=== PATIENT | male | born 1930 | race Caucasian/White ===

== ENCOUNTER 2019-09-04 08:14 | Observation (INO) | payer MEDICARE ==
[2019-08-29 16:33] LABS: BASOPHILS % (AUTO) 0.6 % (0-1); EOSINOPHILS # (AUTO) 0.5 X10'3 (0-0.9); EOSINOPHILS % (AUTO) 10.7 % (0-6); LYMPHOCYTES # (AUTO) 1.1 X10'3 (1.1-4.8); LYMPHOCYTES % (AUTO) 21.7 % (21-51); MEAN CORPUSCULAR HEMOGLOBIN 28.4 PG (27.0-31.0); MEAN CORPUSCULAR HGB CONC 32.4 g/dL (33.0-36.5); MEAN CORPUSCULAR VOLUME 87.8 FL (78-98); MEAN PLATELET VOLUME 8.5 FL (7.4-10.4); MONOCYTES # (AUTO) 0.4 X10'3 (0-0.9); MONOCYTES % (AUTO) 7.4 % (2-12); NEUTROPHILS # (AUTO) 2.9 X10'3 (1.8-7.7); NEUTROPHILS % (AUTO) 59.6 % (42-75); PRE OP HEMATOCRIT 38.9 % (42.0-52.0); PRE OP HEMOGLOBIN 12.6 g/dL (14.0-17.9); PRE OP PLATELET COUNT 169 X10'3 (140-440); RED BLOOD COUNT 4.43 X10'6 (4.70-6.10); RED CELL DISTRIBUTION WIDTH 14.4 % (11.5-14.5)
[2019-08-29 16:43] LABS: PRE OP PROTIME 34.1 SECONDS (9.0-12.0)
[2019-08-29 16:45] LABS: PRE OP INR 3.6 INR
[2019-08-29 16:58] LABS: ALBUMIN 3.4 G/DL (3.4-5.0); ALKALINE PHOSPHATASE 74 IU/L (46-116); BLOOD UREA NITROGEN 31 MG/DL (7-18); CALCIUM 8.6 MG/DL (8.5-10.1); CHLORIDE 108 MMOL/L (99-107); CREATININE 1.82 MG/DL (0.60-1.10); PRE OP ALT 30 U/L (30-65); PRE OP ANION GAP 8 (8-16); PRE OP AST 18 U/L (10-37); PRE OP BILIRUB, TOTAL 0.5 MG/DL (0.0-1.0); PRE OP GLUCOSE 92 MG/DL (70-104); PRE OP POTASSIUM 4.4 MMOL/L (3.4-5.1); PRE OP SODIUM 142 MMOL/L (135-145); TOTAL CARBON DIOXIDE 26.4 MMOL/L (24-32); TOTAL PROTEIN 6.7 G/DL (6.4-8.2); eGFR 35 ML/MIN
[~2019-09-04] VITALS: Ht 177.8 cm; Wt 73.8 kg
[2019-09-04] VITALS (20 sets, daily range): BP systolic 109–167; BP diastolic 51–90
[~2019-09-04 08:14] MED LIST: ACET-812 PO; ALIR75PE SQ; ALOE1CAP PO; ASPI-1265 PO; COU4T PO; CYAN100087 PO; FINA5TAB42 PO; GLUC-183 PO; HYDROcodone/acetaminophen 10/325mg tab PO PRN; HYDROmorphone 1 mg/ml syringe IV PRN; HYDROmorphone inj. 0.5 MG/0.5 ML DISP.SYRIN IV PRN; LEVO75TA7 PO; OMEG1CAP87 PO; acetaminophen 325mg tablet PO ONE; acetaminophen 325mg tablet PO PRN; bisacodyl 10mg suppository rectal RC PRN; ceFAZolin 2gm in dextrose, iso 50 ML IV ONE; celeCOXIB 100mg capsule PO ONE; diphenhydrAMINE 25mg capsule PO PRN; famotidine 20mg tablet PO ONE; gabapentin 300mg capsule PO ONE; magnesium hydroxide 30ml (MOM) UD suspension PO PRN; metoclopramide 5 mg/ml inj IV ONE; ondansetron/PF 4mg/2ml inj IV PRN; oxyCODONE SR 10mg (sust. release) tab -2 tabs (20mg) PO ONE; ringers solution, lacted 1,000 ML IV SCH; tranexamic acid 1gm/0.7% sal. 100 ML IV ONE; vancomycin 1,500 MG in NS 300ml IV soln IV ONE
[2019-09-04] MEDS ORDERED: celeCOXIB 100mg capsule PO ONE (09:20)
[2019-09-04] MEDS ORDERED: vancomycin 1,000mg inj ONE (09:55)
[2019-09-04] MEDS ORDERED: ROPIVAcaine 0.5% (5mg/ml) 30ml vial ONE (09:55)
[2019-09-04] MEDS ORDERED: epiNEPHrine 1 mg/ml inj ONE (09:55)
[2019-09-04] MEDS ORDERED: cloNIDine hcl/PF 100mcg/ml inj ONE (09:55)
[2019-09-04 10:31] LABS: PARTIAL THROMBOPLASTIN TIME 26 SECONDS (22-32); PRE OP INR 1.2 INR; PRE OP PROTIME 11.9 SECONDS (9.0-12.0)
[2019-09-04] MEDS ORDERED: fentaNYL/PF 50MCG/1 ML 2ML syringe ONE (10:36)
[2019-09-04] MEDS ORDERED: midazolam 2 mg/2 ml injection ONE (10:37)
[2019-09-04] MEDS ORDERED: propofol inj 20 ML IV ONE (11:22)
[2019-09-04] MEDS ORDERED: diphenhydrAMINE 50 mg/ml inj ONE (11:22)
[2019-09-04] MEDS ORDERED: LIDOcaine 2% (20mg/ml) 5ml vial ONE (11:22)
[2019-09-04] MEDS ORDERED: ePHEDrine 50MG/ML INJ. ONE (11:22)
--- NOTE | 2019-09-04 12:00 | NUR ---
RECEIVED FROM [facility] VIA BED WITH OHTF ACCOMPANIED BY ANESTHESIOLOGIST DR BENITEZ, REPORT GIVEN. PT DROWSY BUT AROUSES EASILY AND DENIES PAIN AT THIS TIME. L HIP LAURO DRESSING CDI, HIP WRAP, POWDER PACK AND KNEE IMMOBILIZER ON. SPINAL SENSATION AT UMBILICUS. 18 GAUGE PIV R WRIST PATENT AND RUNNING LR AT 100 ML/HR. SKIN PINK AND WARM, VSS, GOOD CAP REFILL, PERIPHERAL PULSES PRESENT, SCDS ON, RESTING COMFORTABLY.
[2019-09-04] MEDS ORDERED: ringers solution, lacted 1,000 ML IV SCH (12:57)
[2019-09-04] MEDS ORDERED: HYDROmorphone inj. 0.5 MG/0.5 ML DISP.SYRIN IV PRN (13:00)
[2019-09-04] MEDS ORDERED: ondansetron/PF 4mg/2ml inj IV PRN (13:00)
[2019-09-04] MEDS ORDERED: morphine 2 MG/ML inj. syringe IV PRN (13:00)
--- NOTE | 2019-09-04 13:20 | NUR ---
TRANSFERRED VIA BED WITH [facility] WITH BED RAILS IN UP POSITION, REPORT GIVEN. PT DROWSY BUT AROUSES EASILY AND DENIES PAIN AT THIS TIME. L HIP LAURO DRESSING CDI, HIP WRAP, POWDER PACK AND KNEE IMMOBILIZER ON. SPINAL SENSATION AT UMBILICUS. 18 GAUGE PIV R WRIST PATENT AND RUNNING LR AT 100 ML/HR. SKIN PINK AND WARM, VSS, GOOD CAP REFILL, PERIPHERAL PULSES PRESENT, SCDS ON, RESTING COMFORTABLY. TELE MONITER NUMBER [id number] APPLIED
[2019-09-04] MEDS ORDERED: tranexamic acid 1gm/0.7% sal. 100 ML IV ONE (15:30)
[2019-09-04] MEDS ORDERED: vancomycin/NS 1 GM ADD-VANTAGE 250 ML IV SCH (16:00)
[2019-09-04] MEDS: ceFAZolin 1GM/D5W- ADD-VANTAGE 50 ML IV SCH ×2 (17:04→23:53)
[2019-09-04] MEDS: finasteride 5mg tablet PO SCH (19:11)
[2019-09-04] MEDS: ascorbic acid 500mg tablet PO SCH (20:18)
[2019-09-04] MEDS: gabapentin 300mg capsule PO SCH (20:21)
[2019-09-04] MEDS ORDERED: warfarin 5mg tablet PO SCH (21:00)
[2019-09-04] MEDS ORDERED: sennosides 8.6mg tablet PO SCH (21:00)
[2019-09-04] MEDS: potassium cl 20mEq in 1/2 NS 1,000 ML IV SCH ×2 (23:09→23:53)
[2019-09-05 02:00] VITALS: BP 112/67
[2019-09-05] MEDS: HYDROcodone/acetaminophen 10/325mg tab PO PRN ×3 (05:17→17:16)
[2019-09-05 06:00] VITALS: BP 141/70
[2019-09-05 06:22] LABS: BASOPHILS % (AUTO) 0.4 % (0-1); EOSINOPHILS # (AUTO) 0.4 X10'3 (0-0.9); HEMATOCRIT 34.3 % (42.0-52.0); HEMOGLOBIN 11.1 g/dl (14.0-17.9); LYMPHOCYTES # (AUTO) 0.7 X10'3 (1.1-4.8); LYMPHOCYTES % (AUTO) 14.7 % (21-51); MEAN CORPUSCULAR HEMOGLOBIN 28.8 PG (27.0-31.0); MEAN CORPUSCULAR HGB CONC 32.5 g/dL (33.0-36.5); MEAN CORPUSCULAR VOLUME 88.4 FL (78-98); MEAN PLATELET VOLUME 8.4 FL (7.4-10.4); MONOCYTES # (AUTO) 0.4 X10'3 (0-0.9); MONOCYTES % (AUTO) 8.6 % (2-12); NEUTROPHILS # (AUTO) 3.5 X10'3 (1.8-7.7); NEUTROPHILS % (AUTO) 69.3 % (42-75); PLATELET COUNT 125 X10'3 (140-440); RED BLOOD COUNT 3.88 X10'6 (4.70-6.10); RED CELL DISTRIBUTION WIDTH 14.2 % (11.5-14.5); WHITE BLOOD COUNT 5.1 X10'3 (4.5-11.0)
--- NOTE | 2019-09-05 06:28 | NUR ---
Problems reprioritized. Patient report given, questions answered & plan of care reviewed with PAMELA FREED.
--- NOTE | 2019-09-05 06:39 | NUR ---
Patient in room [facility]TH[facility] 4020b. I have received report from PAMELA matthews and had the opportunity to ask questions and assume patient care.
[2019-09-05 06:43] LABS: ANION GAP 6 (8-16); CHLORIDE 109 MMOL/L (99-107); POTASSIUM 4.2 MMOL/L (3.5-5.1); SODIUM 140 MMOL/L (135-145); TOTAL CARBON DIOXIDE 25.4 MMOL/L (24-32)
[2019-09-05] MEDS: gabapentin 300mg capsule PO SCH ×2 (07:17→12:56)
[2019-09-05] MEDS: ascorbic acid 500mg tablet PO SCH (07:19)
[2019-09-05] MEDS ORDERED: multivitamins, therapeutics tablet PO SCH (08:00)
[2019-09-05] MEDS ORDERED: levoTHYROXINE 75mcg tablet PO SCH (08:00)
[2019-09-05] MEDS: finasteride 5mg tablet PO SCH (09:40)
[2019-09-05] MEDS: potassium cl 20mEq in 1/2 NS 1,000 ML IV SCH ×2 (09:41→15:09)
[2019-09-05 10:00] VITALS: BP 120/62
--- NOTE | 2019-09-05 11:14 | NUR ---
Joint replacement consult: Pt PO 100% first regular diet meal last night per EMR. Pt seen by RD for written/verbal high protein ed w/ RD contact information provided. Pt reports vegan diet preferences which was added to meals prior to breakfast today and so far enjoying food. Unfortunately, no vegan ONS options at this time; pt does reports eating complete proteins at home and has alternative protein sources available. RD reviewed vegan ONS options as well for once at home. Addendum: 09/05/19 at [address] Amended: Links added.
[2019-09-05 14:00] VITALS: BP 126/51
--- NOTE | 2019-09-05 15:46 | NUR ---
DC INSTRUCTIONS GIVEN TO PT, QUESTIONS ANSWERED. IV REMOVED, CANULA INTACT, NO PROBLEMS. ASSISTED PT WITH DRESSING, GATHERED BELONGINGS AND ASSISTED PT TO A WHEELCHAIR. AWAITING DAUGHTERS ARRIVAL FOR DC.
[2019-09-05] MEDS ORDERED: celeCOXIB 100mg capsule PO SCH (20:00)
--- NOTE | 2019-09-06 16:18 | NUR ---
Case Management DC follow up: spoke to pt daughter, Melissa Hodges, via telephone. s/p: LTHA. Reports for pt: "doing pretty good" pt daughter went on to say that pt fell last night, in a lot of pain, thinks r/t norco. Pt fell backward, hit head, no bleeding, no swelling, just sore. Pt daughter did talk to Dr Joey Dye this morning about the fall, told to give pt ibuprofen, pt to get pt up for short walks. No instructions sent home w/pt for after care per pt daughter. Went over s/s infection, what to look for, L foot slightly swollen. No recommendations to come in. pt educated on what to look for, change in mentation, unable to rouse etc...Pt daughter verbalizes understanding. Denies: acute/continuous CP, emergent SOB, resp distress, N/V, GARCIA, blurry vision, vertigo, syncope episodes, weakness,emergent general pain, abd tenderness/distension, bladder pain, dysuria, polyuria, hematuria, retention, constipation, diarrhea, fever, unexplained bleeding, bruising. Verbalizes understanding of s/s that warrant 9-11/ER visit for further evaluation. Verbalizes understanding of Rx and why prescribed, resumes current Rx, taking as ordered, no ase r/t polypharmacy. Acknowledges need to schedule/keep follow up appts w/ PCP: Dr Park, agrees to call and schedule follow up & ask about outpatient PT if needed. Dr Joey Dye scheduled in 2 weeks. Verbalizes compliance w/DC aftercare. Needs met, questions answered at DC, no further questions or concerns at this time.
== END 2019-09-05 17:10 | disposition home or self-care (01) ==
LOC: PAS 08:14 → ORTHO 4S 08:15
PROVIDERS: ADMIT Orthopaedic Surgery; ATTEND Orthopaedic Surgery
DX: Z03.818 Encounter for observation for suspected exposure to other biological agents ruled out (principal); M16.12 Unilateral primary osteoarthritis, left hip; M70.62 Trochanteric bursitis, left hip; M47.816 Spondylosis without myelopathy or radiculopathy, lumbar region; Z87.891 Personal history of nicotine dependence; Z79.899 Other long term (current) drug therapy
CPT/HCPCS: 27130; 36415; 71046; 72170; 80051; 80053; 82948; 84443; 85025; 85610; 85730; 86885; 86900; 86901; 87081; 96365; 96366; 96367; 96375; 97116; 97161; 97530; 97535; C1776; G0378; J0171; J0690; J0735; J1200; J2001; J2250; J2704; J2765; J3010; J3370; J7040; J7120; U0003; A4615; A7000; J2795; J3480

== ENCOUNTER 2019-09-12 11:23 | Emergency (ER) | payer MEDICARE ==
[~2019-09-12] VITALS: Ht 177.8 cm; Wt 79.5 kg
[~2019-09-12 11:23] MED LIST changes: -HYDROcodone/acetaminophen 10/325mg tab PO PRN; -HYDROmorphone 1 mg/ml syringe IV PRN; -HYDROmorphone inj. 0.5 MG/0.5 ML DISP.SYRIN IV PRN; -acetaminophen 325mg tablet PO ONE; -acetaminophen 325mg tablet PO PRN; -bisacodyl 10mg suppository rectal RC PRN; -ceFAZolin 2gm in dextrose, iso 50 ML IV ONE; -celeCOXIB 100mg capsule PO ONE; -diphenhydrAMINE 25mg capsule PO PRN; -famotidine 20mg tablet PO ONE; -gabapentin 300mg capsule PO ONE; -magnesium hydroxide 30ml (MOM) UD suspension PO PRN; -metoclopramide 5 mg/ml inj IV ONE; -ondansetron/PF 4mg/2ml inj IV PRN; -oxyCODONE SR 10mg (sust. release) tab -2 tabs (20mg) PO ONE; -ringers solution, lacted 1,000 ML IV SCH; -tranexamic acid 1gm/0.7% sal. 100 ML IV ONE; -vancomycin 1,500 MG in NS 300ml IV soln IV ONE
[2019-09-12 12:17] VITALS: BP 183/109
[2019-09-12 12:20] LABS: D-DIMER 14.28 MG/L FEU (0-0.50)
--- NOTE | 2019-09-12 13:05 | NUR ---
VASCULAR AT BEDSIDE.
== END 2019-09-12 14:16 | disposition home or self-care (01) ==
LOC: ER 11:24
DX: T81.89XA Other complications of procedures, not elsewhere classified, initial encounter (principal); R22.42 Localized swelling, mass and lump, left lower limb; E78.00 Pure hypercholesterolemia, unspecified; I25.2 Old myocardial infarction; Z85.9 Personal history of malignant neoplasm, unspecified; Z98.890 Other specified postprocedural states; Z88.8 Allergy status to other drugs, medicaments and biological substances; Z79.82 Long term (current) use of aspirin; Z79.899 Other long term (current) drug therapy; Y83.8 Other surgical procedures as the cause of abnormal reaction of the patient, or of later complication, without mention of misadventure at the time of the procedure; Y92.89 Other specified places as the place of occurrence of the external cause
CPT/HCPCS: 36415; 85379; 93971; 99284